=== PATIENT | male | born 1990 | race African-American/Black ===

== ENCOUNTER 2016-11-18 09:52 | Emergency (ER) | payer MEDICAID, OTHER ==
[~2016-11-18] VITALS: Ht 182.9 cm; Wt 69.0 kg
[2016-11-18 10:25] VITALS: BP 121/82
== END 2016-11-18 11:48 | disposition home or self-care (01) ==
LOC: ER 09:52
DX: L72.3 Sebaceous cyst (principal); M67.40 Ganglion, unspecified site; R03.0 Elevated blood-pressure reading, without diagnosis of hypertension
CPT/HCPCS: 99281

== ENCOUNTER 2016-12-25 23:58 | Emergency (ER) | payer MEDICAID, OTHER ==
[~2016-12-25] VITALS: Ht 167.6 cm; Wt 75.0 kg
[2016-12-26] MEDS ORDERED: KETOROLAC 30MG/ML VIAL IV STA (01:15)
[2016-12-26] MEDS ORDERED: KETOROLAC 60MG/2ML VIAL IM ONE (01:15)
[2016-12-26] MEDS ORDERED: SODIUM CHLORIDE 0.9% 1,000 ML IV ONE (01:15)
[2016-12-26] MEDS ORDERED: MORPHINE SULFATE 2 MG/ML CPJ (NOT FOR IM USE) IV STA (02:09)
[2016-12-26] MEDS ORDERED: DIPHENHYDRAMINE 50MG/ML VIAL IV ONE (02:15)
[2016-12-26] MEDS ORDERED: MORPHINE SULFATE 4 MG/ML CPJ (NOT FOR IM USE) IV NR (02:45)
[2016-12-26 03:36] VITALS: BP 150/91
== END 2016-12-26 05:43 | disposition home or self-care (01) ==
LOC: ER 23:58
DX: S43.102A Unspecified dislocation of left acromioclavicular joint, initial encounter (principal); F12.10 Cannabis abuse, uncomplicated; Y04.0XXA Assault by unarmed brawl or fight, initial encounter; Y93.89 Activity, other specified; Y92.89 Other specified places as the place of occurrence of the external cause; Y99.8 Other external cause status
CPT/HCPCS: 73030; 73050; 96361; 96374; 96375; 99285; J1200; J1885; J2270; J7040; Z7610; J7030

== ENCOUNTER 2018-03-01 14:54 | Emergency (ER) | payer MEDICAID ==
[~2018-03-01] VITALS: Ht 182.9 cm; Wt 78.0 kg
[2018-03-01] MEDS ORDERED: KETOROLAC 60MG/2ML VIAL IM ONE (22:30)
[2018-03-01 23:52] LABS: BASOPHILS % 0.7 % (0.0-2.0); EOSINOPHILS % 0.3 % (0.0-5.0); HEMATOCRIT. 38.8 % (42.0-52.0); HEMOGLOBIN. 12.5 g/dL (14.0-18.0); MEAN CORPUSCULAR HEMOGLOBIN 26.3 pg (28.0-32.0); MEAN CORPUSCULAR VOLUME 81.4 fL (80.0-94.0); MEAN PLATELET VOLUME 7.6 fl (7.4-10.4); MONOCYTES % 11.8 % (2.0-8.0); NEUTROPHILS % 68.2 % (40.0-76.0); PLATELET 217 x1000/uL (130-400); RED BLOOD CELL COUNT 4.77 mill/uL (4.7-6.1)
[2018-03-01 23:57] LABS: CHLORIDE 100 mEq/L (98-107)
[2018-03-02 00:04] LABS: ETHANOL BLOOD < 10 mg/dL
[2018-03-02 01:32] VITALS: BP 148/80
== END 2018-03-02 01:44 | disposition home or self-care (01) ==
LOC: ER 14:54
DX: R11.2 Nausea with vomiting, unspecified (principal); F10.10 Alcohol abuse, uncomplicated; Y90.0 Blood alcohol level of less than 20 mg/100 ml
CPT/HCPCS: 36415; 70450; 71045; 80053; 83690; 85025; 96372; 99284; G0482; J1885

== ENCOUNTER 2019-03-10 15:16 | Emergency (ER) | payer MEDICAID ==
[~2019-03-10] VITALS: Ht 177.8 cm; Wt 75.0 kg
[2019-03-10 15:29] VITALS: BP 136/79
== END 2019-03-10 16:47 | disposition left against medical advice (07) ==
LOC: ER 15:16
DX: S09.8XXA Other specified injuries of head, initial encounter (principal); Y08.89XA Assault by other specified means, initial encounter; Y93.89 Activity, other specified; Y92.89 Other specified places as the place of occurrence of the external cause; Y99.8 Other external cause status; F10.10 Alcohol abuse, uncomplicated; Y90.0 Blood alcohol level of less than 20 mg/100 ml; F12.10 Cannabis abuse, uncomplicated
CPT/HCPCS: 99283

== ENCOUNTER 2019-08-08 20:36 | Emergency (ER) | payer MEDICAID ==
[~2019-08-08] VITALS: Ht 182.9 cm; Wt 73.0 kg
[2019-08-08] MEDS ORDERED: HYDROCODONE/ACETAMINOPHEN 5/325MG TABLET PO ONE (22:30)
[2019-08-08] MEDS ORDERED: LIDOCAINE HCL/EPINEPHRINE 1%-EPI 1:100,000 20 ML VIAL INFIL ONE (22:30)
[2019-08-08] MEDS ORDERED: TETANUS, DIPHTHERIA, PERTUSSIS VAC/PF 0.5ML (>7YR OLD) IM ONE (22:30)
[2019-08-08] MEDS ORDERED: BACITRACIN ZINC OINT UDPKT TOP ONE (22:30)
[2019-08-09 02:07] VITALS: BP 122/76
== END 2019-08-09 02:09 | disposition home or self-care (01) ==
LOC: ER 20:36
DX: S01.511A Laceration without foreign body of lip, initial encounter (principal); X58.XXXA Exposure to other specified factors, initial encounter; Y93.89 Activity, other specified; Y92.89 Other specified places as the place of occurrence of the external cause; Y99.8 Other external cause status; F12.10 Cannabis abuse, uncomplicated
CPT/HCPCS: 70486; 90471; 90715; 99284; J3490

== ENCOUNTER 2020-06-03 19:33 | Emergency (ER) | payer MEDICAID ==
[~2020-06-03] VITALS: Ht 172.7 cm; Wt 75.0 kg
[2020-06-03] MEDS ORDERED: DIPHENHYDRAMINE 50MG/ML VIAL IM ONE ×2 (20:15→22:15)
[2020-06-03] MEDS ORDERED: LORAZEPAM 2MG/ML CPJ IM ONE ×2 (20:15→22:15)
[2020-06-03] MEDS ORDERED: HALOPERIDOL LACTATE 5MG/ML VIAL IM ONE ×2 (20:15→22:15)
[2020-06-03] MEDS ORDERED: LIDOCAINE HCL/EPINEPHRINE 1%-EPI 1:100,000 50 ML VIAL INFIL ONE (21:30)
[2020-06-03] MEDS ORDERED: LIDOCAINE HCL/EPINEPHRINE 1%-EPI 1:100,000 10 ML VIAL IJ SCH (21:45)
[2020-06-04 05:49] VITALS: BP 148/98
== END 2020-06-04 07:05 | disposition home or self-care (01) ==
LOC: ER 19:33
DX: S01.81XA Laceration without foreign body of other part of head, initial encounter (principal); S02.5XXA Fracture of tooth (traumatic), initial encounter for closed fracture; F10.229 Alcohol dependence with intoxication, unspecified; Y08.89XA Assault by other specified means, initial encounter; Y93.89 Activity, other specified; Y92.89 Other specified places as the place of occurrence of the external cause; Y99.8 Other external cause status; Y90.0 Blood alcohol level of less than 20 mg/100 ml; F12.10 Cannabis abuse, uncomplicated
CPT/HCPCS: 12013; 70450; 70486; 96372; 99285; A4217; J1200; J1630; J2060; J3490; Z7610

== ENCOUNTER 2020-06-06 15:29 | Emergency (ER) | payer MEDICAID ==
[~2020-06-06] VITALS: Ht 185.4 cm; Wt 75.0 kg
[2020-06-06] MEDS ORDERED: CHLO3800 TP (17:02)
[2020-06-06 17:15] VITALS: BP 148/89
== END 2020-06-06 17:16 | disposition home or self-care (01) ==
LOC: ER 15:29
DX: Z48.00 Encounter for change or removal of nonsurgical wound dressing (principal)
CPT/HCPCS: 99281

== ENCOUNTER 2020-06-10 13:42 | Emergency (ER) | payer MEDICAID ==
[~2020-06-10] VITALS: Ht 185.4 cm; Wt 73.0 kg
[~2020-06-10 13:42] MED LIST: CHLO3800 TP
[2020-06-10 15:13] VITALS: BP 131/87
== END 2020-06-10 15:14 | disposition home or self-care (01) ==
LOC: ER 13:42
DX: Z48.02 Encounter for removal of sutures (principal)
CPT/HCPCS: 99281

== ENCOUNTER 2022-05-23 11:18 | Emergency (ER) | payer MEDICAID, OTHER ==
[~2022-05-23] VITALS: Ht 177.8 cm; Wt 91.0 kg
[2022-05-23 12:24] LABS: BASOPHILS % 1.3 % (0.0-2.0); EOSINOPHILS % 3.1 % (0.0-5.0); HEMATOCRIT. 34.9 % (42.0-52.0); LYMPHOCYTES % 26.2 % (20.0-50.0); MEAN CORPUSCULAR HEMOGLOBIN 24.6 pg (28.0-32.0); MEAN PLATELET VOLUME 6.9 fl (7.4-10.4); MONOCYTES % 7.3 % (2.0-8.0); NEUTROPHILS % 62.1 % (40.0-76.0); PLATELET 341 x1000/uL (130-400); RED BLOOD CELL COUNT 4.48 mill/uL (4.7-6.1); RED CELL DISTRIBUTION WIDTH 23.6 % (11.6-14.6)
[2022-05-23 12:29] LABS: PROTHROMBIN TIME 10.9 sec (9.6-11.0)
[2022-05-23 12:32] LABS: CHLORIDE 111 mEq/L (98-107)
[2022-05-23] MEDS ORDERED: SODIUM CHLORIDE 0.9% 1,000 ML IV ONE (12:45)
[2022-05-23] MEDS ORDERED: CHLORDIAZEPOXIDE 25MG CAPSULE PO PRN (12:45)
[2022-05-23 12:46] LABS: ETHANOL BLOOD 502 mg/dL
[2022-05-23 12:59] LABS: PLATELET ESTIMATE NORMAL
[2022-05-23] MEDS ORDERED: LORAZEPAM 2MG/ML CPJ IV ONE (13:00)
[2022-05-23] MEDS ORDERED: [UNRECOGNIZED DRUG - REMARK] IV ONE ×5 (14:30)
[2022-05-23] MEDS ORDERED: L10 MT (16:02)
[2022-05-23 16:12] LABS: CLARITY URINE CLEAR (CLEAR); COLOR URINE YELLOW (YELLOW); KETONES URINE NEGATIVE (NEGATIVE); LEUKOCYTE ESTERASE URINE NEGATIVE (NEGATIVE); NITRITE URINE NEGATIVE (NEGATIVE); OCCULT BLOOD URINE TRACE (NEGATIVE); PROTEIN URINE TRACE (NEGATIVE); UROBILINOGEN URINE 0.2 E.U./dL (0.2-1.0)
[2022-05-23] MEDS ORDERED: HALOPERIDOL LACTATE 5MG/ML VIAL IM ONE (16:45)
[2022-05-23] MEDS ORDERED: DIPHENHYDRAMINE 50MG/ML VIAL IM PRN (16:45)
[2022-05-23 22:47] VITALS: BP 126/61
== END 2022-05-23 22:48 | disposition home or self-care (01) ==
LOC: ER 11:28
DX: F10.129 Alcohol abuse with intoxication, unspecified (principal); S09.8XXA Other specified injuries of head, initial encounter; Y90.8 Blood alcohol level of 240 mg/100 ml or more; X58.XXXA Exposure to other specified factors, initial encounter; Y93.9 Activity, unspecified; Y92.410 Unspecified street and highway as the place of occurrence of the external cause
CPT/HCPCS: 36415; 70450; 72125; 80053; 80320; 81003; 85025; 85610; 96361; 96365; 96372; 96375; 99285; J1630; J2060; J3411; J3475; J3490; J7030; Z7610; G0480

== ENCOUNTER 2022-06-16 01:33 | Emergency (ER) | payer OTHER ==
[~2022-06-16] VITALS: Ht 185.4 cm; Wt 73.0 kg
[2022-06-16] MEDS ORDERED: KETOROLAC 60MG/2ML VIAL IM ONE (02:30)
[2022-06-16 02:37] VITALS: BP 144/99
[2022-06-16] MEDS ORDERED: CEPH500T MT (02:59)
[2022-06-16] MEDS ORDERED: IBUP-2029 MT (02:59)
== END 2022-06-16 03:14 | disposition home or self-care (01) ==
LOC: ER 01:33
DX: L03.011 Cellulitis of right finger (principal); F12.10 Cannabis abuse, uncomplicated
CPT/HCPCS: 73130; 96372; 99283; J1885; Z7610

== ENCOUNTER 2024-01-20 15:20 | Emergency (ER) | payer OTHER ==
[~2024-01-20] VITALS: Ht 177.8 cm; Wt 84.0 kg
[~2024-01-20 15:20] MED LIST changes: +CEPH500T MT; +IBUP-2029 MT
[2024-01-20 15:39] VITALS: O2SAT 99
[2024-01-20] MEDS: LORAZEPAM 2MG/ML INJ IM STA (16:38)
[2024-01-20] MEDS: DIPHENHYDRAMINE 50MG/ML VIAL IM STA (16:38)
[2024-01-20] MEDS: HALOPERIDOL LACTATE 5MG/ML VIAL IM STA (16:38)
[2024-01-20 17:03] LABS: BASOPHILS % 0.4 % (0.0-2.0); EOSINOPHILS % 6.6 % (0.0-5.0); HEMATOCRIT. 36.9 % (42.0-52.0); HEMOGLOBIN. 11.9 g/dL (14.0-18.0); LYMPHOCYTES % 23.2 % (20.0-50.0); MEAN CORPUSCULAR HEMOGLOBIN 28.6 pg (28.0-32.0); MEAN CORPUSCULAR HGB CONC 32.3 g/dL (31.0-37.0); MEAN CORPUSCULAR VOLUME 88.5 fL (80.0-94.0); MEAN PLATELET VOLUME 7.1 fl (7.4-10.4); MONOCYTES % 10.9 % (2.0-8.0); NEUTROPHILS % 58.9 % (40.0-76.0); PLATELET 232 x1000/uL (130-400); RED BLOOD CELL COUNT 4.17 mill/uL (4.7-6.1); RED CELL DISTRIBUTION WIDTH 17.3 % (11.6-14.6); WHITE BLOOD COUNT 6.5 x1000/uL (4.5-11.0)
[2024-01-20 17:07] LABS: CHLORIDE 109 mEq/L (98-107); POTASSIUM 2.9 mEq/L (3.5-5.1); SODIUM 146 mEq/L (136-145)
[2024-01-20 17:08] LABS: CALCIUM 8.9 mg/dL (8.7-10.4); CARBON DIOXIDE 24 mEq/L (21-32)
[2024-01-20 17:13] LABS: CREATININE 1.4 mg/dL (0.6-1.3); GLUCOSE 79 mg/dL (70-105); UREA NITROGEN BLOOD 7 mg/dL (9-23)
[2024-01-20] MEDS ORDERED: POTASSIUM CHLORIDE 20MEQ TABLET SR PO ONE (17:15)
[2024-01-20 17:27] LABS: ETHANOL BLOOD 482 mg/dL (<10)
[2024-01-20] MEDS: LACTATED RINGERS 1,000 ML IV ONE (20:00)
[2024-01-20] MEDS: POTASSIUM CHLORIDE 20MEQ TABLET SR PO NR (20:58)
[2024-01-20] MEDS: MAGNESIUM OXIDE 400MG TABLET PO SCH (20:58)
[2024-01-20 23:52] LABS: CHLORIDE 108 mEq/L (98-107); POTASSIUM 3.6 mEq/L (3.5-5.1); SODIUM 143 mEq/L (136-145)
[2024-01-20 23:53] LABS: CALCIUM 9.1 mg/dL (8.7-10.4); CARBON DIOXIDE 27 mEq/L (21-32)
[2024-01-20 23:58] LABS: CREATININE 1.2 mg/dL (0.6-1.3); GLUCOSE 126 mg/dL (70-105); UREA NITROGEN BLOOD 7 mg/dL (9-23)
[2024-01-21 07:50] VITALS: BP 114/70; PULSE 74; RESP 16; TEMP 36.83628; O2SAT 99
== END 2024-01-21 08:24 | disposition home or self-care (01) ==
LOC: ER 15:20
DX: F19.10 Other psychoactive substance abuse, uncomplicated (principal); F10.129 Alcohol abuse with intoxication, unspecified; F12.10 Cannabis abuse, uncomplicated; R45.1 Restlessness and agitation; Y90.9 Presence of alcohol in blood, level not specified
CPT/HCPCS: 80048; 80320; 83735; 85025; 36415; 96372; 99285; J1200; J1630; J7120; G0480